=== PATIENT | female | born 1960 | race Two or more races ===

== ENCOUNTER 2021-12-29 06:35 | Day surgery (SDC) | payer OTHER ==
[2021-12-29] MEDS ORDERED: MACROBID 100 M100 MG PO (11:10)
[2021-12-29] MEDS ORDERED: ULTRACET PO (11:11)
== END 2021-12-29 12:50 | disposition home or self-care (01) ==
LOC: CIR.AMB 06:35
PROVIDERS: ATTEND Obstetrics & Gynecology Gynecology
DX: N81.11 Cystocele, midline (principal); N99.3 Prolapse of vaginal vault after hysterectomy; Z88.8 Allergy status to other drugs, medicaments and biological substances

== ENCOUNTER 2022-06-22 06:35 | Day surgery (SDC) | payer OTHER ==
[~2022-06-22] VITALS: Ht 157.5 cm; Wt 73.9 kg
[~2022-06-22 06:35] MED LIST: MACROBID 100 M100 MG PO; ULTRACET PO
[2022-06-22] MEDS ORDERED: ULTRACET PO (10:41)
[2022-06-22] MEDS ORDERED: MACROBID 100 M100 MG PO (10:41)
== END 2022-06-22 12:50 | disposition home or self-care (01) ==
LOC: CIR.AMB 06:35
PROVIDERS: ATTEND Obstetrics & Gynecology Gynecology
DX: N81.11 Cystocele, midline (principal); N81.5 Vaginal enterocele; N81.83 Incompetence or weakening of rectovaginal tissue; Z20.822 Contact with and (suspected) exposure to COVID-19; Z88.8 Allergy status to other drugs, medicaments and biological substances

== ENCOUNTER 2023-03-21 06:45 | Day surgery (SDC) | payer OTHER ==
[~2023-03-21] VITALS: Ht 162.6 cm; Wt 74.4 kg
[2023-03-21] MEDS ORDERED: SENOKOT-S TABL1 EACH PO (11:34)
[2023-03-21] MEDS ORDERED: PERCOCET 5-3251 EACH PO (11:34)
== END 2023-03-21 13:45 | disposition home or self-care (01) ==
LOC: CIR.AMB 06:45
PROVIDERS: ATTEND Obstetrics & Gynecology Gynecology
DX: N81.11 Cystocele, midline (principal); N81.10 Cystocele, unspecified; N81.89 Other female genital prolapse; N81.5 Vaginal enterocele; Z20.822 Contact with and (suspected) exposure to COVID-19